=== PATIENT | female | born 1990 | race Two or more races ===

== ENCOUNTER 2016-06-23 08:30 | Outpatient (CLI) | payer BC | END 2016-06-23 23:59 | disposition home or self-care (01) | LOC: WOU 08:30 | PROVIDERS: ATTEND Podiatrist Foot & Ankle Surgery | DX: T81.31XA Disruption of external operation (surgical) wound, not elsewhere classified, initial encounter (principal); L97.212 Non-pressure chronic ulcer of right calf with fat layer exposed | CPT/HCPCS: A6402; G0463 ==

== ENCOUNTER 2016-06-30 08:40 | Outpatient (CLI) | payer BC | END 2016-06-30 23:59 | disposition home or self-care (01) | LOC: WOU 08:40 | PROVIDERS: ATTEND Podiatrist Foot & Ankle Surgery | DX: T81.31XA Disruption of external operation (surgical) wound, not elsewhere classified, initial encounter (principal); L97.212 Non-pressure chronic ulcer of right calf with fat layer exposed | CPT/HCPCS: 11042; A6402 ==

== ENCOUNTER 2016-07-07 08:53 | Outpatient (CLI) | payer BC | END 2016-07-07 23:59 | disposition home or self-care (01) | LOC: WOU 08:53 | PROVIDERS: ATTEND Podiatrist Foot & Ankle Surgery | DX: L97.212 Non-pressure chronic ulcer of right calf with fat layer exposed (principal); T81.31XS Disruption of external operation (surgical) wound, not elsewhere classified, sequela | CPT/HCPCS: 11042; A6402 ==

== ENCOUNTER 2016-07-21 08:50 | Outpatient (CLI) | payer BC | END 2016-07-21 23:59 | disposition home or self-care (01) | LOC: WOU 08:50 | PROVIDERS: ATTEND Podiatrist Foot & Ankle Surgery | DX: T81.31XD Disruption of external operation (surgical) wound, not elsewhere classified, subsequent encounter (principal) | CPT/HCPCS: 99214; A6402; G0463 ==

== ENCOUNTER 2016-08-04 08:53 | Outpatient (CLI) | payer BC | END 2016-08-04 23:59 | disposition home or self-care (01) | LOC: WOU 08:53 | PROVIDERS: ATTEND Podiatrist Foot & Ankle Surgery | DX: Z09 Encounter for follow-up examination after completed treatment for conditions other than malignant neoplasm (principal) | CPT/HCPCS: G0463 ==

== ENCOUNTER 2016-10-13 08:55 | Outpatient (CLI) | payer BC | END 2016-10-13 23:59 | disposition home or self-care (01) | LOC: WOU 08:55 | PROVIDERS: ATTEND Podiatrist Foot & Ankle Surgery | DX: T81.89XA Other complications of procedures, not elsewhere classified, initial encounter (principal); T81.89XD Other complications of procedures, not elsewhere classified, subsequent encounter | CPT/HCPCS: A6402; G0463 ==

== ENCOUNTER 2016-10-20 08:55 | Outpatient (CLI) | payer BC | END 2016-10-20 23:59 | disposition home or self-care (01) | LOC: WOU 08:55 | PROVIDERS: ATTEND Podiatrist Foot & Ankle Surgery | DX: T81.89XD Other complications of procedures, not elsewhere classified, subsequent encounter (principal); I96 Gangrene, not elsewhere classified | CPT/HCPCS: 11042; A6402 ==

== ENCOUNTER 2016-10-27 08:50 | Outpatient (CLI) | payer BC | END 2016-10-27 23:59 | disposition home or self-care (01) | LOC: WOU 08:50 | PROVIDERS: ATTEND Podiatrist Foot & Ankle Surgery | DX: T81.31XD Disruption of external operation (surgical) wound, not elsewhere classified, subsequent encounter (principal) | CPT/HCPCS: 11042; A6402 ==

== ENCOUNTER 2016-11-05 08:50 | Outpatient (CLI) | payer BC | END 2016-11-05 23:59 | disposition home or self-care (01) | LOC: WOU 08:50 | PROVIDERS: ATTEND Podiatrist Foot & Ankle Surgery | DX: T81.31XD Disruption of external operation (surgical) wound, not elsewhere classified, subsequent encounter (principal); R60.0 Localized edema | CPT/HCPCS: 17250; A6402 ==

== ENCOUNTER 2016-11-19 10:17 | Outpatient (CLI) | payer BC | END 2016-11-19 23:59 | disposition home or self-care (01) | LOC: WOU 10:17 | PROVIDERS: ATTEND Podiatrist Foot & Ankle Surgery | DX: T81.31XD Disruption of external operation (surgical) wound, not elsewhere classified, subsequent encounter (principal) | CPT/HCPCS: A6402; G0463 ==